=== PATIENT | female | born 1970 | race Two or more races ===

== ENCOUNTER → 2017-01-27 | Outpatient (CLI) | payer OTHER ==
--- NOTE | 2017-01-27 10:53 | RAD ---
Indication: Neck pain and left shoulder radiculopathy. Time of exam 10:46 AM 3 views of the cervical spine were obtained. The patient's earrings obscure the odontoid on the lateral view. There is straightening of the normal cervical lordotic curvature. There is degenerative disc disease C5-6 level with disc space narrowing and marginal spurring. The prevertebral tissues are normal. Odontoid appears intact on the frontal view. No fractures are seen. Impression: C5-6 degenerative disc disease. No other significant abnormality is detected.
== END | disposition home or self-care (01) ==
LOC: DXRADRC 10:39
PROVIDERS: ATTEND Physician Assistant Medical
DX: M50.322 Other cervical disc degeneration at C5-C6 level (principal); M54.12 Radiculopathy, cervical region; M99.01 Segmental and somatic dysfunction of cervical region
CPT/HCPCS: 72040

== ENCOUNTER → 2021-08-12 | Outpatient (CLI) | payer OTHER ==
--- NOTE | 2021-08-13 16:37 | RAD ---
Bilateral digital screening mammogram 08/12/2021 CLINICAL HISTORY: Screening study. Digital MLO and CC mammograms of both breasts were obtained. Comparison study is dated 09/12/2019. The breast parenchyma is composed of scattered fibroglandular densities which could obscure a lesion on mammography (breast density B). No spiculated mass is seen. No malignant appearing calcification o r area of architectural distortion is noted. Impression: BI-RADS Category 1: Negative. There is no mammographic evidence of malignancy. Routine y early screening mammography is recommended for follow-up. This examination was reviewed with the aid of computer-aided detection. A mammogram does not have 100% sensitivity and therefore a negative imaging study should not delay fu rther work up of a suspicious abnormality. Patient information is entered into the reminder system with a target due date for the next screening mammogram of 08/12/2022. "Our facility is accredited by the [employer] Mammography [employer]." Electronically signed by: Zac Solorio MD (08/13/2021 4:35 PM) [id number]
== END ==
LOC: MAMMO 07:47
PROVIDERS: ATTEND Physician Assistant Medical
DX: Z12.31 Encounter for screening mammogram for malignant neoplasm of breast (principal)
CPT/HCPCS: 77067